=== PATIENT | female | born 1955 ===

== ENCOUNTER 2018-04-08 19:07 | Observation (INO) | payer MEDICAID ==
--- NOTE | 2018-04-08 19:41 | ED PDOC ---
Arrival/HPI - General Chief Complaint: GI Problem Time Seen by Provider: 04/08/18 19:21 Historian: Patient - History of Present Illness Narrative History of Present Illness (Text): 04/08/18 19:36 A 62 year old female, whose past medical history includes colon cancer on chemotherapy, last session 1 week ago, presents to the emergency department complaining of non-bloody diarrhea for the past few days. Patient notes associated nausea and 1 episode of non-bilious non-bloody vomiting. Patient also reports a headache and episodes of dizziness, which occasionally cause her to feel near syncopal and unsteady while ambulating. Patient denies any fever, chills, abdominal pain, chest pain, shortness of breath, cough or any other complaints. Time/Duration: Other (few days) Symptom Course: Unchanged Context: Home Past Medical History - Provider Review Nursing Documentation Reviewed: Yes - Infectious Disease Hx of Infectious Diseases: None - Cardiac Hx Cardiac Disorders: No - Pulmonary Hx Respiratory Disorders: No - Neurological Hx Neurological Disorder: No - HEENT Hx HEENT Disorder: No - Renal Hx Renal Disorder: No - Endocrine/Metabolic Hx Endocrine Disorders: No - Hematological/Oncological Hx Blood Disorders: Yes Hx Cancer: Yes (colon) Hx Chemotherapy: Yes - Integumentary Hx Dermatological Disorder: No - Musculoskeletal/Rheumatological Hx Musculoskeletal Disorders: No - Gastrointestinal Hx Gastrointestinal Disorders: Yes Hx Gall Bladder Disease: Yes - Genitourinary/Gynecological Hx Genitourinary Disorders: No - Psychiatric Hx Psychophysiologic Disorder: No Hx Substance Use: No - Surgical History Hx Appendectomy: Yes Hx Cholecystectomy: Yes - Anesthesia Hx Anesthesia: Yes Family/Social History - Physician Review Nursing Documentation Reviewed: Yes Family/Social History: No Known Family HX Smoking Status: Light Smoker < 10 Cigarettes Daily Hx Alcohol Use: No Hx Substance Use: No Allergies/Home Meds Allergies/Adverse Reactions: Allergies No Known Allergies Allergy (Verified 04/08/18 19:18) Home Medications: Home Meds Medication Instructions Recorded Confirmed Unobtainable 04/08/18 04/08/18 Review of Systems - Physician Review All systems were reviewed & negative as marked: Yes - Review of Systems Constitutional: absent: Fevers, Night Sweats Respiratory: absent: SOB, Cough Cardiovascular: Other (near-syncopal). absent: Chest Pain Gastrointestinal: Diarrhea, Nausea, Vomiting. absent: Abdominal Pain Neurological: Headache, Dizziness, Gait Changes (unsteady) Physical Exam Vital Signs Reviewed: Yes Vital Signs Temp Pulse Resp BP Pulse Ox 04/08/18 23:40 86 18 150/82 100 04/08/18 21:21 80 18 129/81 98 04/08/18 19:28 98.5 F 87 18 123/74 98 Temperature: Afebrile Blood Pressure: Normal Pulse: Regular Respiratory Rate: Normal Appearance: Positive for: Well-Appearing, Non-Toxic, Comfortable Pain Distress: None Mental Status: Positive for: Alert and Oriented X 3 - Systems Exam Head: Present: Atraumatic, Normocephalic Pupils: Present: PERRL Extroacular Muscles: Present: EOMI Conjunctiva: Present: Normal Ears: Present: Normal Mouth: Present: Moist Mucous Membranes Pharnyx: Present: Normal Neck: Present: Normal Range of Motion Respiratory/Chest: Present: Clear to Auscultation, Good Air Exchange. No: Respiratory Distress, Accessory Muscle Use Cardiovascular: Present: Regular Rate and Rhythm, Normal S1, S2. No: Murmurs Abdomen: Present: Normal Bowel Sounds. No: Tenderness, Distention, Peritoneal Signs Back: Present: Normal Inspection Upper Extremity: Present: Normal Inspection. No: Cyanosis, Edema Lower Extremity: Present: Normal Inspection. No: Edema Neurological: Present: GCS=15, CN II-XII Intact, Speech Normal, Motor Func Grossly Intact, Normal Sensory Function, Normal Cerebellar Funct, Gait Normal Skin: Present: Warm, Dry, Normal Color. No: Rashes Psychiatric: Present: Alert, Oriented x 3, Normal Insight, Normal Concentration Medical Decision Making ED Course and Treatment: 04/08/18 19:36 Impression: A 62 year old female with nausea, vomiting, and diarrhea. Patient notes a headache and dizziness. Plan: -- Head CT -- EKG -- Labs -- Urinalysis -- Reassess and disposition Progress Notes: EKG shows NSR at 87 BPM with normal intervals, normal axis. Interpreted by me. Report Date : 04/08/2018 21:06:00 EXAM: CT Head Without Intravenous Contrast Dictated By: Nicolas Arevalo MD IMPRESSION: 1. No definite acute intracranial abnormality. 2. Incidental/non-acute findings are described above. 04/08/18 23:10: Case discussed in detail with Dr. Ortega who will consult on the patient. Case also discussed with curator medical museum and Dr. Roldan who accepts patient to the hospitalist's service. - Lab Interpretations Lab Results: 04/08/18 19:40 04/08/18 19:40 Lab Results 04/08/18 20:39: Urine Color Light yellow, Urine Appearance Clear, Urine pH 7.5, Ur Specific [place] 1.015, Urine Protein Negative, Urine Glucose (UA) Negative, Urine Ketones Negative, Urine Blood Trace-intact H, Urine Nitrate Negative, Urine Bilirubin Negative, Urine Urobilinogen 0.2, Ur Leukocyte Esterase Negative , Urine RBC 0 - 2, Urine WBC 0 - 2, Ur Epithelial Cells 0 - 2, Urine Bacteria Trace 04/08/18 19:40: Free T4 1.07, TSH 3rd Generation 1.59 04/08/18 19:40: PT 12.6 H, INR 1.10 H, APTT 37.6 H 04/08/18 19:40: WBC 4.1 L, RBC 3.79, Hgb 12.4, Hct 37.3, MCV 98.4, MCH 32.7, MCHC 33.2, RDW 14.9 H, Plt Count 85 L, MPV 9.8 04/08/18 19:40: Sodium 148, Potassium 3.6, Chloride 109 H, Carbon Dioxide 28, Anion Gap 14, BUN 11, Creatinine 0.5 L, Est GFR ( Amer) > 60, Est GFR ( Non-Af Amer) > 60, Random Glucose 96, Calcium 9.2, Total Bilirubin 0.6, AST 41 H , ALT 31, Alkaline Phosphatase 98, Lactate Dehydrogenase 656, Total Creatine Kinase 69, Troponin I < 0.01, Total Protein 6.7, Albumin 3.8, Globulin 2.9, Albumin/Globulin Ratio 1.3, Lipase 264 I have reviewed the lab results: Yes - RAD Interpretation Radiology Orders: 04/08/18 19:30 HEAD W/O CONTRAST [CT] Stat - Medication Orders Current Medication Orders: Enoxaparin Sodium (Lovenox) 40 mg SC DAILY ANGELES PRN Reason: Protocol Sodium Chloride (Sodium Chloride 0.9%) 1,000 mls @ 100 mls/hr IV .Q10H ANGELES Last Admin: 04/08/18 21:53 Dose: 100 mls/hr eMAR Start Stop Document 04/08/18 21:53 AD (Rec: 04/08/18 21:53 AD [id number]) Intravenous Solution Start Date 04/08/18 Start Time 21:53 Ibuprofen (Motrin Tab) 600 mg PO Q6H PRN PRN Reason: Headache Ondansetron HCl (Zofran Inj) 4 mg IVP Q6 PRN PRN Reason: Nausea/Vomiting Pantoprazole Sodium (Protonix Ec Tab) 40 mg PO 0600 ANGELES Last Admin: 04/09/18 05:04 Dose: 40 mg Discontinued Medications Ondansetron HCl (Zofran Inj) 4 mg IVP ONCE ONE Stop: 04/08/18 21:42 Last Admin: 04/08/18 22:03 Dose: 4 mg IVP Administration Document 04/08/18 22:03 AD (Rec: 04/08/18 22:03 AD [id number]) Charges for Administration # of IVP Administrations 1 - Scribe Statement The provider has reviewed the documentation as recorded by the Harjeetibstephanie Parnell Provider Scribe Attestation: All medical record entries made by the Scribe were at my direction and personally dictated by me. I have reviewed the chart and agree that the record accurately reflects my personal performance of the history, physical exam, medical decision making, and the department course for this patient. I have also personally directed, reviewed, and agree with the discharge instructions and disposition. Disposition/Present on Arrival - Present on Arrival Any Indicators Present on Arrival: No History of DVT/PE: No History of Uncontrolled Diabetes: No Urinary Catheter: No History of Decub. Ulcer: No History Surgical Site Infection Following: None - Disposition Have Diagnosis and Disposition been Completed?: Yes Diagnosis: Near syncope, Gait instability Disposition: HOSPITALIZED Disposition Time: 23:09 Patient Plan: Observation Patient Problems: Current Active Problems Problem Status Onset Gait instability Acute Near syncope Acute Condition: STABLE
[2018-04-08 19:54] LABS: HEMOGLOBIN 12.4 g/dL (12.0-16.0); MEAN CELL VOLUME 98.4 fl (80.0-105.0); MEAN CORPUSCULAR HEMOGLOBIN 32.7 pg (25.0-35.0); MEAN CORPUSCULAR HGB CONC 33.2 g/dl (31.0-37.0); MEAN PLATELET VOLUME 9.8 fl (7.0-11.0); RBC 3.79 10^6/uL (3.5-6.1); RED CELL DISTRIBUTION WIDTH 14.9 % (11.5-14.5); WHITE BLOOD COUNT 4.1 10^3/ul (4.5-11.0)
[2018-04-08 19:59] LABS: INR 1.1 (0.93-1.08); PROTHROMBIN TIME 12.6 SECONDS (9.4-12.5)
[2018-04-08 20:00] LABS: ALB/GLOB RATIO 1.3 (1.1-1.8); ALBUMIN 3.8 g/dL (3.0-4.8); ALT/SGPT 31 U/L (7-56); AST/SGOT 41 U/L (14-36); BLOOD UREA NITROGEN 11 mg/dL (7-21); CALCIUM 9.2 mg/dL (8.4-10.5); GFR AFRICAN-AMERICAN > 60; GFR NON-AFRICAN AMERICAN > 60; LIPASE 264 U/L (23-300); PARTIAL THROMBOPLASTIN TIME 37.6 Seconds (25.1-36.5)
[2018-04-08 20:12] LABS: TROPONIN I < 0.01 ng/mL
[2018-04-08 20:58] LABS: PH,URINE 7.5 (4.7-8.0); URINE APPEARANCE CLEAR (CLEAR); URINE BILIRUBIN NEGATIVE (NEGATIVE); URINE BLOOD TRACE-INTACT (NEGATIVE); URINE COLOR LIGHT YELLOW (YELLOW); URINE GLUCOSE (UA) NEGATIVE (NEGATIVE); URINE LEUKOCYTE ESTERASE NEGATIVE Leu/uL (NEGATIVE); URINE PROTEIN NEGATIVE mg/dL (<30 mg/dL); URINE UROBILINOGEN 0.2 E.U./dL (<1 E.U./dL)
[2018-04-08 21:00] LABS: URINE BACTERIA TRACE (NEG); URINE EPITHELIAL CELLS 0 - 2 /hpf (0-5); URINE RBC 0 - 2 /hpf (0-2); URINE WBC 0 - 2 /hpf (0-6)
--- NOTE | 2018-04-08 21:07 | CT ---
EXAM: CT Head Without Intravenous Contrast CLINICAL HISTORY: 62 years old, female; Signs and symptoms; Dizziness; Additional info: Dizzy TECHNIQUE: Axial computed tomography images of the head/brain without intravenous contrast. All CT scans at this facility use one or more dose reduction techniques, viz.: automated exposure control; ma/kV adjustment per patient size (including targeted exams where dose is matched to indication; i.e. head); or iterative reconstruction technique. Coronal and sagittal reformatted images were created and reviewed. COMPARISON: No relevant prior studies available. FINDINGS: Brain: Mild atrophy. No intracranial hemorrhage. No mass. No definite edema. Ventricles: No hydrocephalus. Bones/joints: No acute fracture. Soft tissues: Unremarkable. Vasculature: Minimal atherosclerotic disease of intracranial arteries. Sinuses: Scattered minimal mucosal thickening. Mastoid air cells: No mastoid effusion. Orbits: Unremarkable as visualized. IMPRESSION: 1. No definite acute intracranial abnormality. 2. Incidental/non-acute findings are described above.
[2018-04-08] MEDS: Sodium Chloride 0.9% 1,000 ML IV SCH (21:53)
--- NOTE | 2018-04-09 00:08 | CP.PCM.HP ---
<Jewell Green - Last Filed: 04/09/18 06:15> History of Present Illness - History of Present Illness History of Present Illness: PGY-[address] Roldan CC: Near syncope, Gait instability Ms Diggs, 62 year old [facility] female, whose past medical history includes colon cancer (2017) s/p colectomy currently on chemotherapy, last session 1 week ago, presents to the emergency department complaining of spinning sensation and gait instability. After this round of chemo, 4 days ago, pt started to feel dizzy, with room spinning sensation. The dizziness was severe today and daughter noticed the patient swerving to one side when she walks. The spinning and dizziness was made worse when she rises from bed in AM. She had had nausea, vomiting, and diarrhea after the chemo. She had decreased appetite, decreased oral intake, and drink less water. She has non-bloody diarrhea for the past few days. She had nausea and 1 episode of non-bilious non-bloody vomiting today. ROS: (+) Headache from occipital to frontal b/l. (+) stress from illness and family (+) numbness of finger tips and toes started 2 months ago Denies sick contact, recent travel, recent antibiotics Denies fever, chills, abdominal pain, chest pain, shortness of breath, cough, abdominal pain, dysuria, frquency/decrease in urination PMHx Colon cancer (dx May 2017) - s/p hemicolectomy in [place] - ongoing chemo every MTW since 7 month ago and still on-going Anemia - Fe infusion almost monthly Chronic back pain on flexeril and gabapentin PSH Hemicolectomy appendectomy cholecysectomy FH Adopted. FH unavailable SH Live with daughter. Independent ambulation Former smoker, quit 2 months ago, /ppd x 50 years Denies drink and drug All NKDA Med Loperamid 2mg q6 prn Gabapentin Flexeril PMD = Lavinia Pina V Oncologist = Dr Ortega Present on Admission - Present on Admission Any Indicators Present on Admission: No Past Patient History - Infectious Disease Hx of Infectious Diseases: None - Past Social History Smoking Status: Light Smoker < 10 Cigarettes Daily - CARDIAC Hx Cardiac Disorders: No - PULMONARY Hx Respiratory Disorders: No - NEUROLOGICAL Hx Neurological Disorder: No - HEENT Hx HEENT Problems: No - RENAL Hx Chronic Kidney Disease: No - ENDOCRINE/METABOLIC Hx Endocrine Disorders: No - HEMATOLOGICAL/ONCOLOGICAL Hx Blood Disorders: Yes Hx Cancer: Yes (colon) Hx Chemotherapy: Yes - INTEGUMENTARY Hx Dermatological Problems: No - MUSCULOSKELETAL/RHEUMATOLOGICAL Hx Musculoskeletal Disorders: No - GASTROINTESTINAL Hx Gastrointestinal Disorders: Yes Hx Gall Bladder Disease: Yes - GENITOURINARY/GYNECOLOGICAL Hx Genitourinary Disorders: No - PSYCHIATRIC Hx Psychophysiologic Disorder: No Hx Substance Use: No - SURGICAL HISTORY Hx Appendectomy: Yes Hx Cholecystectomy: Yes - ANESTHESIA Hx Anesthesia: Yes Meds Allergies/Adverse Reactions: Allergies Allergy/AdvReac Type Severity Reaction Status Date / Time No Known Allergies Allergy Verified 05/10/18 12:09 Physical Exam - Constitutional Appears: No Acute Distress - Head Exam Head Exam: ATRAUMATIC, NORMAL INSPECTION, NORMOCEPHALIC - Eye Exam Eye Exam: EOMI, Normal appearance, PERRL Additional comments: tenderness when palpate occiptial to frontal b/l - ENT Exam ENT Exam: Mucous Membranes Moist - Neck Exam Neck exam: Negative for: Lymphadenopathy Additional comments: supple - Respiratory Exam Respiratory Exam: Clear to Auscultation Bilateral, NORMAL BREATHING PATTERN. absent: Rales, Rhonchi, Wheezes - Cardiovascular Exam Cardiovascular Exam: REGULAR RHYTHM, +S1, +S2. absent: Systolic Murmur - GI/Abdominal Exam GI & Abdominal Exam: Normal Bowel Sounds, Soft. absent: Distended, Guarding Additional comments: mid-line scar healed well - Extremities Exam Extremities exam: Positive for: normal inspection, pedal pulses present. Negative for: calf tenderness, pedal edema - Neurological Exam Neurological exam: Alert, CN II-XII Intact, Oriented x3 Additional comments: AAOx3 speech normal Motor 5/5 all extremities sensory intact rapid alternative movement intact Ziyad-Hallpike test is positive for horizontal nystagmas when rotate L Results - Vital Signs Recent Vital Signs: Last Vital Signs Temp 98.5 F 04/08/18 19:28 Pulse 86 04/08/18 23:40 Resp 18 04/08/18 23:40 BP 150/82 04/08/18 23:40 Pulse Ox 100 04/08/18 23:40 - Labs Result Diagrams: 04/08/18 19:40 04/08/18 19:40 Assessment & Plan - Assessment and Plan (Free Text) Plan: Ms Diggs, 62 year old [place] female, whose past medical history includes colon cancer (2017) s/p hemicolectomy currently on chemotherapy, last session 1 week ago, complain of severe dizziness with spinning with gait instability. Pt had nausea, vomiting, diarrhea after this round of chemo associated with decreased oral intake. She has non-bloody diarrhea for the past few days. She had nausea and 1 episode of non-bilious non-bloody vomiting today. PE is significant for horizontal nystagmus on ziyad-hallpike testing. CT head was negative for acute intracranial abnormality. EKG shows NSR at 87 BPM with normal intervals, normal axis. Near syncope with vertigionous component, R/O metabilic cause - Syncope workup: Telemetry, orthostatic VS, carotid doppler, echo - CT head was negative for acute intracranial abnormality. EKG shows NSR at 87 BPM with normal intervals, normal axis. - High Fall risk - Defer to neuro re: decision of meclizine - A1C, TSH Nausea, vomiting, diarrhea likely side effect of chemo doubt infectious origin - zofran PRN Gait instability Likely from dizziness - physical therapy Tension Headache - motrin PRN Hx Colon cancer Anemia likely side effect of chemo - Call Dr Ortega to get chemo drug info Chronic back pain on flexeril and gabapentin - Call Liz in AM to confirm doses Numbness and tingling of tips of fingers and toes - Likely side effect of chemotherapy Prophylaxis - protonix and lovenox s/r/d/w Dr. Roldan <Yuli TAM,[facility] - Last Filed: 05/14/18 11:03> Results - Vital Signs Recent Vital Signs: Last Vital Signs Temp 97.5 F L 04/10/18 08:28 Pulse 77 04/10/18 08:28 Resp 18 04/10/18 08:28 BP 118/66 04/10/18 08:28 Pulse Ox 98 04/10/18 08:28 - Labs Result Diagrams: 04/10/18 06:30 04/10/18 06:30 Attending/Attestation - Attestation I have personally seen and examined this patient.: Yes I have fully participated in the care of the patient.: Yes I have reviewed all pertinent clinical information: Yes Notes (Text): -I agree with the above H&P (including assessment and plan) completed by the resident physician.
[2018-04-09 02:09] LABS: FREE T4 1.07 ng/dL (0.78-2.19)
[2018-04-09 03:13] VITALS: BMI 18.8
[2018-04-09] MEDS: Pantoprazole 40 mg EC Tab PO SCH (05:04)
[2018-04-09 06:42] LABS: BASO # 0.02 K/mm3 (0.0-2.0); BASO % 0.5 % (0.0-3.0); EOS # 0.1 (0.0-0.7); GRAN # 2.03 (1.4-6.5); GRAN % 51.7 % (50.0-68.0); LYMPH # 1.3 (1.2-3.4); LYMPH % 32.1 % (22.0-35.0); MEAN CELL VOLUME 98.5 fl (80.0-105.0); MEAN CORPUSCULAR HEMOGLOBIN 32.1 pg (25.0-35.0); MEAN CORPUSCULAR HGB CONC 32.5 g/dl (31.0-37.0); MEAN PLATELET VOLUME 9.4 fl (7.0-11.0); MONO # 0.5 (0.1-0.6); MONO % 13.7 % (1.0-6.0); RBC 3.43 10^6/uL (3.5-6.1); RED CELL DISTRIBUTION WIDTH 15.2 % (11.5-14.5); WHITE BLOOD COUNT 3.9 10^3/ul (4.5-11.0)
[2018-04-09 07:24] LABS: ALB/GLOB RATIO 1.3 (1.1-1.8); ALBUMIN 3.2 g/dL (3.0-4.8); ALT/SGPT 33 U/L (7-56); AST/SGOT 39 U/L (14-36); BLOOD UREA NITROGEN 7 mg/dL (7-21); CALCIUM 8.6 mg/dL (8.4-10.5); GFR AFRICAN-AMERICAN > 60; GFR NON-AFRICAN AMERICAN > 60
[2018-04-09] MEDS ORDERED: Potassium Chloride 20 mEq ER Tab PO ONE (07:28)
--- NOTE | 2018-04-09 08:27 | CP.PCM.CON ---
<Deidra Rodriguez - Last Filed: 04/09/18 16:24> History of Present Illness - History of Present Illness History of Present Illness: 62yo female PMHx colon ca on chemo, anemia, and chronic back pain presents with 4 day history of dizziness and gait instability. Patient reports she feels especially dizzy everytime she stands up and feels like she is going to lose balance. Patient feels like the room is spinning during these episodes. She denies any LOC, fall, or weakness. She does admit to chills and having episodes of diarrhea for 2 days prior to the dizziness and a slight headache. She denied any fever, chills, chest pain, palpitations, SOB, cough, abd pain, dysuria, pain /swelling in her legs b/l. Patient does have some numbness and tingling at her fingertips b/l which she associates with her chemotherapy. 12 point ROS obtained and negative, except as per HPI. PMHx: Colon cancer (dx May 2017) s/p hemicolectomy in [place] and currently ongoing chemo every MTW for the past 7 months, Anemia [receives iron infusions monthly], Chronic back pain on flexeril and gabapentin PSurgHx: Hemicolectomy, appendectomy, cholecysectomy Meds: pls see chart ALL: NKDA FamHx: adopted- fam hx unavailable SocHx: Live with daughter, former smoker quit 2 months ago and used to smoke 5- 10 cigarettes/day for 50 years, denies drinking EtOH/drug use, ambulates independently PMD: Kam Oncologist: Jordan Review of Systems - Review of Systems All systems: reviewed and no additional remarkable complaints except Review of Systems: as per HPI Past Patient History - Infectious Disease Hx of Infectious Diseases: None - Past Social History Smoking Status: Light Smoker < 10 Cigarettes Daily - CARDIAC Hx Cardiac Disorders: No - PULMONARY Hx Respiratory Disorders: No - NEUROLOGICAL Hx Neurological Disorder: No - HEENT Hx HEENT Problems: No - RENAL Hx Chronic Kidney Disease: No - ENDOCRINE/METABOLIC Hx Endocrine Disorders: No - HEMATOLOGICAL/ONCOLOGICAL Hx Blood Disorders: Yes Hx Cancer: Yes (colon) Hx Chemotherapy: Yes - INTEGUMENTARY Hx Dermatological Problems: No - MUSCULOSKELETAL/RHEUMATOLOGICAL Hx Musculoskeletal Disorders: No - GASTROINTESTINAL Hx Gastrointestinal Disorders: Yes Hx Gall Bladder Disease: Yes - GENITOURINARY/GYNECOLOGICAL Hx Genitourinary Disorders: No - PSYCHIATRIC Hx Psychophysiologic Disorder: No Hx Substance Use: No - SURGICAL HISTORY Hx Appendectomy: Yes Hx Cholecystectomy: Yes - ANESTHESIA Hx Anesthesia: Yes Meds Allergies/Adverse Reactions: Allergies Allergy/AdvReac Type Severity Reaction Status Date / Time No Known Allergies Allergy Verified 04/08/18 19:18 - Medications Medications: Current Medications Enoxaparin Sodium (Lovenox) 40 mg SC DAILY ANGELES PRN Reason: Protocol Sodium Chloride (Sodium Chloride 0.9%) 1,000 mls @ 100 mls/hr IV .Q10H [facility] Last Admin: 04/08/18 21:53 Dose: 100 mls/hr Ibuprofen (Motrin Tab) 600 mg PO Q6H PRN PRN Reason: Headache Ondansetron HCl (Zofran Inj) 4 mg IVP Q6 PRN PRN Reason: Nausea/Vomiting Pantoprazole Sodium (Protonix Ec Tab) 40 mg PO 0600 [facility] Last Admin: 04/09/18 05:04 Dose: 40 mg Physical Exam - Constitutional Appears: Non-toxic, No Acute Distress - Head Exam Head Exam: ATRAUMATIC, NORMAL INSPECTION, NORMOCEPHALIC - Eye Exam Eye Exam: EOMI, Normal appearance, Nystagmus (fast phase to the left), PERRL. absent: Conjunctival injection, Scleral icterus Pupil Exam: PERRL - ENT Exam ENT Exam: Mucous Membranes Moist - Neck Exam Neck exam: Positive for: Full Rom. Negative for: Lymphadenopathy - Respiratory Exam Respiratory Exam: NORMAL BREATHING PATTERN. absent: Accessory Muscle Use, Respiratory Distress - Cardiovascular Exam Cardiovascular Exam: +S1, +S2 - GI/Abdominal Exam GI & Abdominal Exam: Soft. absent: Tenderness - Neurological Exam Neurological exam: Alert, CN II-XII Intact, Oriented x3 - Psychiatric Exam Psychiatric exam: Normal Affect, Normal Mood - Skin Skin Exam: Dry, Intact, Normal Color, Warm Results - Vital Signs Recent Vital Signs: Last Vital Signs Temp 97.8 F 04/09/18 02:57 Pulse 62 04/09/18 05:59 Resp 18 04/09/18 02:57 BP 150/74 04/09/18 02:57 Pulse Ox 100 04/09/18 00:45 - Labs Result Diagrams: 04/09/18 06:30 04/09/18 06:30 Labs: Laboratory Results - last 24 hr 04/09/18 04/09/18 06:30 06:30 WBC 3.9 L RBC 3.43 L Hgb 11.0 L Hct 33.8 L MCV 98.5 MCH 32.1 MCHC 32.5 RDW 15.2 H Plt Count 65 L MPV 9.4 Gran % 51.7 Lymph % (Auto) 32.1 Marshall % (Auto) 13.7 H Eos % (Auto) 2.0 Baso % (Auto) 0.5 Gran # 2.03 Lymph # (Auto) 1.3 Marshall # (Auto) 0.5 Eos # (Auto) 0.1 Baso # (Auto) 0.02 Sodium 146 Potassium 3.2 L Chloride 110 H Carbon Dioxide 27 Anion Gap 12 BUN 7 Creatinine 0.4 L Est GFR ( Amer) > 60 Est GFR (Non-Af Amer) > 60 Random Glucose 83 Calcium 8.6 Total Bilirubin 0.7 AST 39 H ALT 33 Alkaline Phosphatase 87 Total Protein 5.8 Albumin 3.2 Globulin 2.6 Albumin/Globulin Ratio 1.3 Assessment & Plan - Assessment and Plan (Free Text) Assessment: 62yo female PMHx colon ca on chemo, anemia, and chronic back pain presents with 4 day history of dizziness and gait instability. Plan: -CT head: no definite acute intracranial abnl; incidental/non acute findings -CTA head/neck: unremarkable -f/u carotid u/s -f/u MRI -f/u orthostatic vitals -Valium 2mg q12 [address] Laura Rodriguez PGY2 <Jacob Sanchez - Last Filed: 04/09/18 18:47> Meds - Medications Medications: Current Medications Diazepam (Valium) 2 mg PO Q12 PRN; Protocol PRN Reason: Other Enoxaparin Sodium (Lovenox) 40 mg SC DAILY [facility] PRN Reason: Protocol Last Admin: 04/09/18 09:55 Dose: 40 mg Potassium Chloride 40 meq/ (Dextrose/Sodium Chloride) 1,020 mls @ 100 mls/hr IV .[id number] [facility] Last Admin: 04/09/18 17:44 Dose: 100 mls/hr Ibuprofen (Motrin Tab) 600 mg PO Q6H PRN PRN Reason: Headache Meclizine HCl (Antivert) 12.5 mg PO TID [facility] Last Admin: 04/09/18 17:32 Dose: 12.5 mg Ondansetron HCl (Zofran Inj) 4 mg IVP Q6 PRN PRN Reason: Nausea/Vomiting Pantoprazole Sodium (Protonix Ec Tab) 40 mg PO 0600 ANGELES Last Admin: 04/09/18 05:04 Dose: 40 mg Results - Vital Signs Recent Vital Signs: Last Vital Signs Temp 98.6 F 04/09/18 18:21 Pulse 76 04/09/18 18:21 Resp 20 04/09/18 18:21 BP 119/68 04/09/18 18:21 Pulse Ox 98 04/09/18 18:21 - Labs Result Diagrams: 04/09/18 06:30 04/09/18 06:30 Labs: Laboratory Results - last 24 hr 04/09/18 04/09/18 06:30 06:30 WBC 3.9 L RBC 3.43 L Hgb 11.0 L Hct 33.8 L MCV 98.5 MCH 32.1 MCHC 32.5 RDW 15.2 H Plt Count 65 L MPV 9.4 Gran % 51.7 Lymph % (Auto) 32.1 Marshall % (Auto) 13.7 H Eos % (Auto) 2.0 Baso % (Auto) 0.5 Gran # 2.03 Lymph # (Auto) 1.3 Marshall # (Auto) 0.5 Eos # (Auto) 0.1 Baso # (Auto) 0.02 Sodium 146 Potassium 3.2 L Chloride 110 H Carbon Dioxide 27 Anion Gap 12 BUN 7 Creatinine 0.4 L Est GFR ( Amer) > 60 Est GFR (Non-Af Amer) > 60 Random Glucose 83 Calcium 8.6 Total Bilirubin 0.7 AST 39 H ALT 33 Alkaline Phosphatase 87 Total Protein 5.8 Albumin 3.2 Globulin 2.6 Albumin/Globulin Ratio 1.3 Attending/Attestation - Attestation I have personally seen and examined this patient.: Yes I have fully participated in the care of the patient.: Yes I have reviewed all pertinent clinical information: Yes
[2018-04-09 08:32] VITALS: O2SAT 98
[2018-04-09] MEDS: Enoxaparin 40 mg Syringe SC SCH (09:55)
[2018-04-09] MEDS: Potassium Chloride 40 MEQ in Dextrose 5%/0.45% NS 1,000 ML IV SCH ×2 (10:04→17:44)
--- NOTE | 2018-04-09 10:12 | CARD ---
APPROVED REPORT EKG Measurement Heart [id number] <Conclusion> Normal sinus rhythm Small Q in 3,F LVH by voltage
--- NOTE | 2018-04-09 11:17 | CT ---
PROCEDURE: CT Angiography of the neck with contrast HISTORY: syncope COMPARISON: None available. TECHNIQUE: Contiguous axial images of the neck were obtained from the level of the skull-base to the superior mediastinum in the arteriographic phase of enhancement. Coronal and sagittal reformats or also generated. IV contrast dose: Radiation Dose - DLP: mGy-cm This CT exam was performed using one or more of the following dose reduction techniques: Automated exposure control, adjustment of the mA and/or kV according to patient size, and/or use of iterative reconstruction technique. FINDINGS: RIGHT CAROTID ARTERIES: Common Carotid Artery: Normal. Carotid Bifurcation: Normal. Internal Carotid Artery:Normal. External Carotid Artery (proximal branches): Normal. LEFT CAROTID ARTERIES: Common Carotid Artery: Normal. Carotid Bifurcation: Calcified plaque. No significant stenosis Internal Carotid Artery:Normal. External Carotid Artery (proximal branches): Normal. VERTEBRAL ARTERIES: Right Vertebral Artery: Normal. Left Vertebral Artery: Normal. OTHER FINDINGS: None. IMPRESSION: No significant stenosis CT Angiography of the Brain. HISTORY: syncope COMPARISON: None available. TECHNIQUE: CT angiography of the intracranial arteries was performed. Coronal and sagittal maximum intensity projection reformated images were generated. This CT exam was performed using one or more of the following dose reduction techniques: Automated exposure control, adjustment of the mA and/or kV according to patient size, and/or use of iterative reconstruction technique. FINDINGS: INTERNAL CEREBRAL ARTERIES: Unremarkable. The skull base, petrous, cavernous and supraclinoid segments are bilaterally widely patent. ANTERIOR CEREBRAL ARTERIES: Unremarkable. A1 and A2 segments are widely patent. Smaller distal branches unremarkable, as visualized. MIDDLE CEREBRAL ARTERIES: Unremarkable. M1 and M2 segments are widely patent. Perisylvian branches grossly symmetric. POSTERIOR CIRCULATION: Basilar Artery: Unremarkable. Distal Vertebral Arteries: Unremarkable. Posterior Cerebral Arteries: Unremarkable. Posterior Inferior Cerebellar Arteries: Unremarkable. ANEURYSM/ VASCULAR MALFORMATIONS: None. OTHER FINDINGS: None. IMPRESSION: Unremarkable CT Angiography of the Brain.
[2018-04-09] MEDS: Sodium Chloride 0.9% 1,000 ML IV SCH (16:04)
--- NOTE | 2018-04-09 22:47 | US ---
PROCEDURE: Bilateral carotid artery duplex ultrasound HISTORY: Carotid stenosis PHYSICIAN(S): Yasir Lubin MD. TECHNIQUE: Duplex sonography and color-flow Doppler were used to evaluate the carotid bifurcations and limited segments of the vertebral arteries bilaterally. FINDINGS: There is mild smooth heterogeneous plaque noted at the carotid bifurcations bilaterally. The peak systolic velocity in the proximal right internal carotid artery is 97 cm/sec. This corresponds to a 20 to 39% proximal right ICA stenosis. Normal systolic velocities are noted in the proximal right external carotid artery. There is antegrade flow in the right vertebral artery. The peak systolic velocity in the proximal left internal carotid artery is 98 cm/sec. This corresponds to a 20 to 39% proximal left ICA stenosis. Normal systolic velocities are noted in the proximal left external carotid artery. There is antegrade flow in the left vertebral artery. IMPRESSION: 1. Bilateral 20-39% proximal ICA stenoses. 2. Antegrade flow in both vertebral arteries.
--- NOTE | 2018-04-09 23:42 | CON ---
DATE: 04/09/2018 LOCATION: The patient in room 377, bed 2. REASON FOR CONSULTATION: Dizzy, near syncope. HISTORY OF PRESENT ILLNESS: A 62-year-old female who recently completed chemotherapy for her colon cancer and she had surgery for colon cancer, admitted with a history that 4 days ago, she started getting dizziness and felt like the room is spinning around, and the patient denies any palpitation, chest pain, shortness of breath, nausea or vomiting associated with this episode. Sometimes, the patient gets headache. The patient felt like passing out with this dizziness. The patient denies any prior history of chest pain, shortness of breath, palpitation on exertion. PAST MEDICAL HISTORY: Positive for surgery for colon cancer, recently completed chemotherapy about 5 days ago. The patient also has history of cholecystectomy and appendectomy. PERSONAL HISTORY: The patient is ex-smoker, 6 to 7 cigarettes a day, but stopped 2 months ago. Denies drinking. ALLERGIES: THE PATIENT DENIES ANY ALLERGIES. MEDICATIONS AT HOME: Not known. REVIEW OF SYSTEMS: All the systems reviewed, positive mentioned in the history, others are negative. FAMILY HISTORY: Not significant. PHYSICAL EXAMINATION VITAL SIGNS: Blood pressure 139/74. We did orthostatic blood pressures, lying down 130/68, sitting 128/74, standing 130/76. So, there is no evidence of postural hypotension. Respiration 20, pulse 78, temperature 98.6. HEENT: Head is normocephalic. Eyes, pupils normal. Conjunctivae normal. Nose and throat normal. NECK: JVP low. Carotids equal. THORAX: AP diameter normal. LUNGS: Clear. CARDIOVASCULAR: S1 and S2. ABDOMEN: Soft. No tenderness. No organomegaly. Bowel sounds normal. EXTREMITIES: No clubbing. No cyanosis. LABORATORY DATA: WBC 3.9, hemoglobin 11, hematocrit 33.8, platelets 65, yesterday platelet was 85. Sodium 146, potassium 3.2, yesterday potassium was 3.6. BUN 7, creatinine 0.4. AST 39, ALT 33. Total protein and albumin normal. TSH normal. EKG showed normal sinus rhythm, small Q in III and aVF, LVH by voltage criteria. Head CT, no definite acute intracranial abnormality. Head and neck CTA, unremarkable CT angiography of the brain. DIAGNOSES: Dizziness, near syncope, low potassium. PLAN: Echo has been ordered. The patient already received 40 mEq of potassium today, Lovenox 40 mg subcutaneously daily. To be followed by neurologist. In the meantime, can try meclizine 12.5 p.o. t.i.d. Echo has been already requested and the patient can have stress test as outpatient, we will schedule through Cardiology Department. We will follow with you. Vidya Ness MD
[2018-04-10] MEDS: Pantoprazole 40 mg EC Tab PO SCH (05:28)
[2018-04-10] MEDS: Potassium Chloride 40 MEQ in Dextrose 5%/0.45% NS 1,000 ML IV SCH (05:28)
[2018-04-10 06:56] LABS: BASO # 0.02 K/mm3 (0.0-2.0); BASO % 0.5 % (0.0-3.0); EOS # 0.1 (0.0-0.7); EOS % 2.5 % (1.5-5.0); GRAN # 1.6 (1.4-6.5); GRAN % 43.6 % (50.0-68.0); LYMPH # 1.5 (1.2-3.4); LYMPH % 39.5 % (22.0-35.0); MEAN CELL VOLUME 99.4 fl (80.0-105.0); MEAN CORPUSCULAR HEMOGLOBIN 31.6 pg (25.0-35.0); MEAN CORPUSCULAR HGB CONC 31.8 g/dl (31.0-37.0); MEAN PLATELET VOLUME 10.2 fl (7.0-11.0); MONO # 0.5 (0.1-0.6); MONO % 13.9 % (1.0-6.0); RBC 3.48 10^6/uL (3.5-6.1); RED CELL DISTRIBUTION WIDTH 15.2 % (11.5-14.5); WHITE BLOOD COUNT 3.7 10^3/ul (4.5-11.0)
[2018-04-10 07:14] LABS: ALB/GLOB RATIO 1.2 (1.1-1.8); ALBUMIN 3.2 g/dL (3.0-4.8); ALT/SGPT 27 U/L (7-56); AST/SGOT 35 U/L (14-36); BLOOD UREA NITROGEN 4 mg/dL (7-21); GFR AFRICAN-AMERICAN > 60; GFR NON-AFRICAN AMERICAN > 60
[2018-04-10 08:28] VITALS: BP 118/66; PULSE 77; RESP 18; TEMP 97.5
--- NOTE | 2018-04-10 08:51 | CARD ---
APPROVED REPORT EXAM: Two-dimensional and M-mode echocardiogram with Doppler and color Doppler. Other Information Quality : GoodRhythm : INDICATION NEAR SYNCOPE 2D DIMENSIONS Left Atrium (2D)3.6 (1.6-4.0cm)IVSd1.0 (0.7-1.1cm) LVDd4.1 (3.9-5.9cm)PWd1.0 (0.7-1.1cm) LVDs2.9 (2.5-4.0cm)FS (%) 28.7 % LVEF (%)55.0 (>50%) M-Mode DIMENSIONS Aortic Root2.20 (2.2-3.7cm)Aortic Cusp Exc.1.60 (1.5-2.0cm) Aortic Valve AoV Peak Xahfrutt861.0cm/s Mitral Valve MV E Tjzhstnz03.2cm/sMV A Gtyvcndr56.9cm/sE/A ratio1.0 TDI E/Lateral E'0.0E/Medial E'0.0 Tricuspid Valve TR Peak Ytaqdckv818tg/sRAP BDILGBED20xqDeGC Peak Gr.14mmHg DLPO91ikKg LEFT VENTRICLE The left ventricle is normal size. There is normal left ventricular wall thickness. The left ventricular function is normal. The left ventricular ejection fraction is within the normal range. There is normal LV segmental wall motion. RIGHT VENTRICLE The right ventricle is normal size. ATRIA The left atrium size is normal. The right atrium size is normal. The interatrial septum is intact with no evidence for an atrial septal defect. AORTIC VALVE The aortic valve is normal in structure. MITRAL VALVE The mitral valve is normal in structure. TRICUSPID VALVE The tricuspid valve is normal in structure. GREAT VESSELS The aortic root is normal in size. PERICARDIAL EFFUSION There is no pericardial effusion. <Conclusion> The left ventricle is normal size. There is normal left ventricular wall thickness. The left ventricular function is normal.
[2018-04-10] MEDS: Enoxaparin 40 mg Syringe SC SCH (10:05)
--- NOTE | 2018-04-10 10:47 | CP.PCM.DIS ---
<Mack Lizarraga - Last Filed: 04/10/18 12:25> Provider - Provider Date of Admission: 04/09/18 22:03 Attending physician: Panda Wilkerson MD Primary care physician: Lavinia Humphrey DO Time Spent in preparation of Discharge (in minutes): 45 Diagnosis - Discharge Diagnosis (1) Vertigo Status: Acute Priority: Medium Hospital Course - Lab Results Lab Results: Most Recent Lab Values WBC 3.7 10^3/ul (4.5-11.0) L 04/10/18 06:30 RBC 3.48 10^6/uL (3.5-6.1) L 04/10/18 06:30 Hgb 11.0 g/dL (12.0-16.0) L 04/10/18 06:30 Hct 34.6 % (36.0-48.0) L 04/10/18 06:30 MCV 99.4 fl (80.0-105.0) 04/10/18 06:30 MCH 31.6 pg (25.0-35.0) 04/10/18 06:30 MCHC 31.8 g/dl (31.0-37.0) 04/10/18 06:30 RDW 15.2 % (11.5-14.5) H 04/10/18 06:30 Plt Count 68 10^3/uL (120.0-450.0) L 04/10/18 06:30 MPV 10.2 fl (7.0-11.0) 04/10/18 06:30 Gran % 43.6 % (50.0-68.0) L 04/10/18 06:30 Lymph % (Auto) 39.5 % (22.0-35.0) H 04/10/18 06:30 Imperial % (Auto) 13.9 % (1.0-6.0) H 04/10/18 06:30 Eos % (Auto) 2.5 % (1.5-5.0) 04/10/18 06:30 Baso % (Auto) 0.5 % (0.0-3.0) 04/10/18 06:30 Gran # 1.60 (1.4-6.5) 04/10/18 06:30 Lymph # (Auto) 1.5 (1.2-3.4) 04/10/18 06:30 Imperial # (Auto) 0.5 (0.1-0.6) 04/10/18 06:30 Eos # (Auto) 0.1 (0.0-0.7) 04/10/18 06:30 Baso # (Auto) 0.02 K/mm3 (0.0-2.0) 04/10/18 06:30 PT 12.6 SECONDS (9.4-12.5) H 04/08/18 19:40 INR 1.10 (0.93-1.08) H 04/08/18 19:40 APTT 37.6 Seconds (25.1-36.5) H 04/08/18 19:40 Sodium 145 mmol/L (132-148) 04/10/18 06:30 Potassium 4.3 mmol/L (3.6-5.0) 04/10/18 06:30 Chloride 109 mmol/L (98-107) H 04/10/18 06:30 Carbon Dioxide 29 mmol/L (21-33) 04/10/18 06:30 Anion Gap 11 (10-20) 04/10/18 06:30 BUN 4 mg/dL (7-21) L 04/10/18 06:30 Creatinine 0.5 mg/dl (0.7-1.2) L 04/10/18 06:30 Est GFR ( Amer) > 60 04/10/18 06:30 Est GFR (Non-Af Amer) > 60 04/10/18 06:30 Random Glucose 93 mg/dL (70-110) 04/10/18 06:30 Hemoglobin A1c 5.4 % (4.2-6.5) 04/08/18 19:40 Calcium 9.0 mg/dL (8.4-10.5) 04/10/18 06:30 Total Bilirubin 0.7 mg/dL (0.2-1.3) 04/10/18 06:30 AST 35 U/L (14-36) 04/10/18 06:30 ALT 27 U/L (7-56) 04/10/18 06:30 Alkaline Phosphatase 84 U/L (38-126) 04/10/18 06:30 Lactate Dehydrogenase 656 U/L (333-699) 04/08/18 19:40 Total Creatine Kinase 69 U/L (35-230) 04/08/18 19:40 Troponin I < 0.01 ng/mL 04/08/18 19:40 Total Protein 5.9 g/dL (5.8-8.3) 04/10/18 06:30 Albumin 3.2 g/dL (3.0-4.8) 04/10/18 06:30 Globulin 2.7 gm/dL 04/10/18 06:30 Albumin/Globulin Ratio 1.2 (1.1-1.8) 04/10/18 06:30 Lipase 264 U/L (23-300) 04/08/18 19:40 Free T4 1.07 ng/dL (0.78-2.19) 04/08/18 19:40 TSH 3rd Generation 1.59 mIU/mL (0.46-4.68) 04/08/18 19:40 Urine Color Light yellow (YELLOW) 04/08/18 20:39 Urine Appearance Clear (CLEAR) 04/08/18 20:39 Urine pH 7.5 (4.7-8.0) 04/08/18 20:39 Ur Specific Avery 1.015 (1.005-1.035) 04/08/18 20:39 Urine Protein Negative mg/dL (<30 mg/dL) 04/08/18 20:39 Urine Glucose (UA) Negative mg/dL (NEGATIVE) 04/08/18 20:39 Urine Ketones Negative mg/dL (NEGATIVE) 04/08/18 20:39 Urine Blood Trace-intact (NEGATIVE) H 04/08/18 20:39 Urine Nitrate Negative (NEGATIVE) 04/08/18 20:39 Urine Bilirubin Negative (NEGATIVE) 04/08/18 20:39 Urine Urobilinogen 0.2 E.U./dL (<1 E.U./dL) 04/08/18 20:39 Ur Leukocyte Esterase Negative Kristel/uL (NEGATIVE) 04/08/18 20:39 Urine RBC 0 - 2 /hpf (0-2) 04/08/18 20:39 Urine WBC 0 - 2 /hpf (0-6) 04/08/18 20:39 Ur Epithelial Cells 0 - 2 /hpf (0-5) 04/08/18 20:39 Urine Bacteria Trace (NEG) 04/08/18 20:39 - Hospital Course Hospital Course: HPI on presentation: Colon, 62 year old anais ackerman female, whose past medical history includes colon cancer (2017) s/p colectomy currently on chemotherapy, last session 1 week ago, presents to the emergency department complaining of spinning sensation and gait instability. After this round of chemo, 4 days ago, pt started to feel dizzy, with room spinning sensation. The dizziness was severe today and daughter noticed the patient swerving to one side when she walks. The spinning and dizziness was made worse when she rises from bed in AM. She had had nausea, vomiting, and diarrhea after the chemo. She had decreased appetite, decreased oral intake, and drink less water. She has non -bloody diarrhea for the past few days. She had nausea and 1 episode of non- bilious non-bloody vomiting today. Hospital course: Patient had Head CT, echo, carotid us, CTA of the head and neck all of which were negative. Patient also had MRI done, the result of which is pending at this time. Patient was able to ambulate with PT but still felt a little dizzy. She was started on Valium by Neuro (Dr. Sanchez), she was instructed to follow up with him as an outpatient. Discharge Exam - Head Exam Head Exam: ATRAUMATIC, NORMAL INSPECTION, NORMOCEPHALIC - Eye Exam Eye Exam: EOMI, Normal appearance, PERRL Pupil Exam: NORMAL ACCOMODATION, PERRL - Respiratory Exam Respiratory Exam: Clear to PA & Lateral, NORMAL BREATHING PATTERN, UNREMARKABLE - Cardiovascular Exam Cardiovascular Exam: REGULAR RHYTHM - GI/Abdominal Exam GI & Abdominal Exam: Normal Bowel Sounds, Soft, Unremarkable. absent: Distended - Neurological Exam Neurological exam: Alert, CN II-XII Intact, Normal Gait, Oriented x3, Reflexes Normal - Psychiatric Exam Psychiatric exam: Normal Affect, Normal Mood - Skin Skin Exam: Dry, Intact, Normal Color, Warm Discharge Plan - Discharge Medications Prescriptions: diaZEpam [Valium] 2 mg PO Q12 PRN #60 tab PRN Reason: Other - Follow Up Plan Condition: STABLE Disposition: HOME/ ROUTINE Instructions: Vertigo (a Type of Dizziness) (DC), Near Fainting Additional Instructions: Please follow up with your primary care doctor in 7-10 days. Please follow up with Dr. Sanchez in his office to follow up the results of your MRI. Please take Valium as prescribed for vertigo symptoms. Please call his office to make an appointment. I have attached his office information. Please come back to the ED if symptoms worsen. Referrals: Jacob Sanchez MD [Staff Provider] - Lavinia Humphrey DO [Primary Care Provider] - <Panda Wilkerson - Last Filed: 04/10/18 14:59> Provider - Provider Date of Admission: 04/09/18 22:03 Attending physician: Panda Wilkerson MD Primary care physician: Lavinia Humphrey DO Hospital Course - Lab Results Lab Results: Most Recent Lab Values WBC 3.7 10^3/ul (4.5-11.0) L 04/10/18 06:30 RBC 3.48 10^6/uL (3.5-6.1) L 04/10/18 06:30 Hgb 11.0 g/dL (12.0-16.0) L 04/10/18 06:30 Hct 34.6 % (36.0-48.0) L 04/10/18 06:30 MCV 99.4 fl (80.0-105.0) 04/10/18 06:30 MCH 31.6 pg (25.0-35.0) 04/10/18 06:30 MCHC 31.8 g/dl (31.0-37.0) 04/10/18 06:30 RDW 15.2 % (11.5-14.5) H 04/10/18 06:30 Plt Count 68 10^3/uL (120.0-450.0) L 04/10/18 06:30 MPV 10.2 fl (7.0-11.0) 04/10/18 06:30 Gran % 43.6 % (50.0-68.0) L 04/10/18 06:30 Lymph % (Auto) 39.5 % (22.0-35.0) H 04/10/18 06:30 Imperial % (Auto) 13.9 % (1.0-6.0) H 04/10/18 06:30 Eos % (Auto) 2.5 % (1.5-5.0) 04/10/18 06:30 Baso % (Auto) 0.5 % (0.0-3.0) 04/10/18 06:30 Gran # 1.60 (1.4-6.5) 04/10/18 06:30 Lymph # (Auto) 1.5 (1.2-3.4) 04/10/18 06:30 Imperial # (Auto) 0.5 (0.1-0.6) 04/10/18 06:30 Eos # (Auto) 0.1 (0.0-0.7) 04/10/18 06:30 Baso # (Auto) 0.02 K/mm3 (0.0-2.0) 04/10/18 06:30 PT 12.6 SECONDS (9.4-12.5) H 04/08/18 19:40 INR 1.10 (0.93-1.08) H 04/08/18 19:40 APTT 37.6 Seconds (25.1-36.5) H 04/08/18 19:40 Sodium 145 mmol/L (132-148) 04/10/18 06:30 Potassium 4.3 mmol/L (3.6-5.0) 04/10/18 06:30 Chloride 109 mmol/L (98-107) H 04/10/18 06:30 Carbon Dioxide 29 mmol/L (21-33) 04/10/18 06:30 Anion Gap 11 (10-20) 04/10/18 06:30 BUN 4 mg/dL (7-21) L 04/10/18 06:30 Creatinine 0.5 mg/dl (0.7-1.2) L 04/10/18 06:30 Est GFR ( Amer) > 60 04/10/18 06:30 Est GFR (Non-Af Amer) > 60 04/10/18 06:30 Random Glucose 93 mg/dL (70-110) 04/10/18 06:30 Hemoglobin A1c 5.4 % (4.2-6.5) 04/08/18 19:40 Calcium 9.0 mg/dL (8.4-10.5) 04/10/18 06:30 Total Bilirubin 0.7 mg/dL (0.2-1.3) 04/10/18 06:30 AST 35 U/L (14-36) 04/10/18 06:30 ALT 27 U/L (7-56) 04/10/18 06:30 Alkaline Phosphatase 84 U/L (38-126) 04/10/18 06:30 Lactate Dehydrogenase 656 U/L (333-699) 04/08/18 19:40 Total Creatine Kinase 69 U/L (35-230) 04/08/18 19:40 Troponin I < 0.01 ng/mL 04/08/18 19:40 Total Protein 5.9 g/dL (5.8-8.3) 04/10/18 06:30 Albumin 3.2 g/dL (3.0-4.8) 04/10/18 06:30 Globulin 2.7 gm/dL 04/10/18 06:30 Albumin/Globulin Ratio 1.2 (1.1-1.8) 04/10/18 06:30 Lipase 264 U/L (23-300) 04/08/18 19:40 Free T4 1.07 ng/dL (0.78-2.19) 04/08/18 19:40 TSH 3rd Generation 1.59 mIU/mL (0.46-4.68) 04/08/18 19:40 Urine Color Light yellow (YELLOW) 04/08/18 20:39 Urine Appearance Clear (CLEAR) 04/08/18 20:39 Urine pH 7.5 (4.7-8.0) 04/08/18 20:39 Ur Specific Avery 1.015 (1.005-1.035) 04/08/18 20:39 Urine Protein Negative mg/dL (<30 mg/dL) 04/08/18 20:39 Urine Glucose (UA) Negative mg/dL (NEGATIVE) 04/08/18 20:39 Urine Ketones Negative mg/dL (NEGATIVE) 04/08/18 20:39 Urine Blood Trace-intact (NEGATIVE) H 04/08/18 20:39 Urine Nitrate Negative (NEGATIVE) 04/08/18 20:39 Urine Bilirubin Negative (NEGATIVE) 04/08/18 20:39 Urine Urobilinogen 0.2 E.U./dL (<1 E.U./dL) 04/08/18 20:39 Ur Leukocyte Esterase Negative Kristel/uL (NEGATIVE) 04/08/18 20:39 Urine RBC 0 - 2 /hpf (0-2) 04/08/18 20:39 Urine WBC 0 - 2 /hpf (0-6) 04/08/18 20:39 Ur Epithelial Cells 0 - 2 /hpf (0-5) 04/08/18 20:39 Urine Bacteria Trace (NEG) 04/08/18 20:39 Attending/Attestation - Attestation I have personally seen and examined this patient.: Yes I have fully participated in the care of the patient.: Yes I have reviewed all pertinent clinical information, including history, physical exam and plan: Yes Notes (Text): I have seen and examined the patient at bedside. Agree with the above note. Patient feels better. PT cleared the patient for discharge. Follow up with Dr Humphrey and Dr Sanchez.
--- NOTE | 2018-04-10 16:05 | MRI ---
PROCEDURE: MRI BRAIN WITHOUT CONTRAST HISTORY: Near syncope. COMPARISON: Comparison made with prior CT scan of the brain CTA neck and brain dated 04/08/2018 and 04/09/2018 respectively. TECHNIQUE: Multiplanar, multisequence MR images of the brain were obtained without intravenous contrast enhancement. FINDINGS: HEMORRHAGE: No acute parenchymal, subarachnoid or extra-axial hemorrhage. No evidence of hemosiderin deposition identified on gradient echo weighted sequence. . DWI: No evidence of an acute or early subacute infarction seen on diffusion imaging. . BRAIN PARENCHYMA: Minor diffuse/confluent chronic periventricular white matter ischemic changes seen extending peripherally into the deep white matter both cerebral hemispheres. In addition, there are multiple tiny focal areas of increased T2 signal scattered about the deep and subcortical white matter as well as the posterior brainstem consistent with tiny chronic lacunar type infarcts. None of these changes exhibit restricted diffusion. No obvious parenchymal nor extra-axial masses or collections seen on this noncontrast study. Mild age-appropriate volume loss. VENTRICLES: No obstructive hydrocephalus. CRANIUM: No acute calvarial abnormalities. ORBITS: Orbits and contents grossly unremarkable. PARANASAL SINUSES/MASTOIDS: Minor mucosal thickening noted within the inferolateral margin left chamber sphenoid sinus. The VASCULAR SYSTEM: Visualized major vascular flow voids at skull base patent OTHER FINDINGS: None. IMPRESSION: No acute intracranial hemorrhage or infarct. Mild chronic white matter and brainstem ischemic changes. Mild age-appropriate volume loss.
== END 2018-04-10 14:24 | disposition home or self-care (01) ==
LOC: ED 19:07 → ERH 23:10 → 3RSO 04-09 01:01 → INTOOBSV 04-09 22:03 → OBSVTOIN 04-09 22:03
PROVIDERS: ADMIT Internal Medicine; ATTEND Hospitalist
DX: R42 Dizziness and giddiness (principal); C18.9 Malignant neoplasm of colon, unspecified; M54.9 Dorsalgia, unspecified; G89.29 Other chronic pain; Z90.49 Acquired absence of other specified parts of digestive tract; Z87.891 Personal history of nicotine dependence
CPT/HCPCS: 36415; 70450; 70496; 70498; 70551; 80053; 81001; 82550; 83036; 83615; 83690; 84439; 84443; 84484; 85025; 85027; 85610; 85730; 93005; 93306; 93880; 96374; 97116; 97162; 97530; 99285; G0378; G8978; G8979; J1650; J2405; J7030; J7042; Q9967

== ENCOUNTER 2018-05-10 08:33 | Observation (INO) | payer MEDICAID ==
[2018-05-10] MEDS ORDERED: Sodium Chloride 0.9% 1,000 ML IV STA (09:29)
--- NOTE | 2018-05-10 09:41 | ED PDOC ---
Arrival/HPI - General Chief Complaint: Medical Clearance Time Seen by Provider: 05/10/18 09:28 Historian: Patient - History of Present Illness Narrative History of Present Illness (Text): 05/10/18 09:30 pt p/w + weeks onset of abd pain; pt + colon cancer history, undergoing chemotherapy; last dose was ~ 1 week ago; pt is to be evaluated by Dr Taveras and was instructed by Dr Blood today to come to emergency department for further eval and likely admission for procedure tomorrow (likely colonoscopy); pt states she felt well otherwise, no fever/chills/sweats, no chest pain/ shortness of breath/palpitations, no n/v, no numbness/tingling, no urinary/ bowel changes, no gross bleeding; no rashes, no fall/trauma/sick contact, 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 pt's without other complaints PCP: Dr Blood GI: Nitin Time/Duration: Other Symptom Onset: Gradual Symptom Course: Unchanged Activities at Onset: Other Context: Home Past Medical History - Provider Review Nursing Documentation Reviewed: Yes - Travel History Have you recently traveled outside [place] w/in the past 3 mons?: No - Past History Past History: No Previous - Infectious Disease Hx of Infectious Diseases: None - Reproductive Menopause: Yes Currently : No - Cardiac Hx Cardiac Disorders: No - Pulmonary Hx Respiratory Disorders: No - Neurological Hx Neurological Disorder: No - HEENT Hx HEENT Disorder: No - Renal Hx Renal Disorder: No - Endocrine/Metabolic Hx Endocrine Disorders: No - Hematological/Oncological Hx Blood Disorders: Yes Hx Cancer: Yes (colon) Hx Chemotherapy: Yes - Integumentary Hx Dermatological Disorder: No - Musculoskeletal/Rheumatological Hx Musculoskeletal Disorders: No - Gastrointestinal Hx Gastrointestinal Disorders: Yes Hx Gall Bladder Disease: Yes - Genitourinary/Gynecological Hx Genitourinary Disorders: No - Psychiatric Hx Psychophysiologic Disorder: No Hx Substance Use: No - Surgical History Hx Appendectomy: Yes Hx Cholecystectomy: Yes - Anesthesia Hx Anesthesia: Yes Family/Social History - Physician Review Nursing Documentation Reviewed: Yes Family/Social History: No Known Family HX Smoking Status: Light Smoker < 10 Cigarettes Daily Hx Alcohol Use: No Hx Substance Use: No Hx Substance Use Treatment: No Allergies/Home Meds Allergies/Adverse Reactions: Allergies No Known Allergies Allergy (Verified 05/10/18 12:09) Home Medications: Home Meds Medication Instructions Recorded Confirmed Loperamide [Imodium] 2 mg PO DAILY PRN 05/10/18 05/10/18 Meclizine [Antivert] 12.5 mg PO DAILY 05/10/18 05/10/18 Ondansetron [Zofran Odt] 8 mg PO DAILY PRN 05/10/18 05/10/18 Oxycodone HCl/Acetaminophen 1 tab PO TID PRN 05/10/18 05/10/18 [Endocet 10-325 mg Tablet] Review of Systems - Review of Systems Constitutional: Normal Eyes: Normal ENT: Normal Respiratory: Normal Cardiovascular: Normal Gastrointestinal: Abdominal Pain. absent: Nausea, Vomiting Genitourinary Female: Normal Musculoskeletal: Normal Skin: Normal Neurological: Normal Endocrine: Normal Hemo/Lymphatic: Normal Psychiatric: Normal Physical Exam - Physical Exam Narrative Physical Exam (Text): 05/10/18 09:30 General: alert/awake, GCS = 15, oriented x 3, resting in bed, uncomfortable, cooperative, interactive; NAD Head: NC/AT EYE: PERRLA, EOMI, sclera anicteric, no nystagmus, no photophobia; visual field intact b/l Facial: WNL Oral: uvula/tongue are midline, no exudate/lesions, no drooling/stridor, no dysphonia; intact dentitions; mild dry oral mucosa NECK: intact ROM, no midline tenderness, no nuchal rigidity, no meningeal signs ; no step off Chest: CTA b/l, no w/r/r; no tachypenia, no accessory muscle use noted Cardiac: +S1, +S2, no m/r/r, no tachycardia Abdominal: +BS, soft/nd, mild diffuse abd tenderness, well nourished patient; no masses/rebound/guarding/rigidity; no de la o's sign, no mcburney's point tenderness Extremities: intact ROM, strength 5/5 grossly intact in all limbs, neurovasc intact b/l; + ambulatory; reflex +2/2; no pitting edema/swelling b/l; no Bouchra' s sign b/l BACK: no step off, no midline tenderness, NO crepitus, no gross deformities noted; Intact ROM SKIN: cap refill ~ 1 sec, no ulcerations, no petechiae, no rashes; no gross pallor NEURO: CNII-XII WNL, no facial asymmetries, no slurr speech, oriented x 3 NIH stroke scale ~ 0 Psych: normal insight, normal affect; follows command with ease Vital Signs Reviewed: Yes Vital Signs Temp Pulse Resp BP Pulse Ox 05/10/18 13:12 73 16 130/65 99 05/10/18 11:50 78 17 139/87 100 05/10/18 08:40 97.8 F 81 18 144/77 99 Temperature: Afebrile Blood Pressure: Hypertensive Pulse: Regular Respiratory Rate: Normal Appearance: Positive for: Well-Appearing, Non-Toxic, Comfortable. No: Ill- Appearing, Unkept Pain Distress: None Mental Status: Positive for: Alert and Oriented X 3 - Systems Exam Head: Present: Atraumatic, Normocephalic Medical Decision Making ED Course and Treatment: 05/10/18 09:30 Impression: colon cancer; for procedure in the morning i have consider all the differential diagnosis regarding pt's chief medical complaints/clinical findings, including but are not limited to: colon cancer; for procedure in the morning A/P: colon cancer - labs - iv - xray - supportive care - observe/reevaluation 05/10/18 11:35 pt is made aware of her medical results pt agrees with admission paging DR blood, no reply; will continue to page her 1230p pt is comfortable pt is not in any distress pt is awaiting hospital bed placement 05/10/18 13:[address] Blood, made aware of and in agreement with plan for admission. Requests bowel prep for a colonoscopy tomorrow and consult for Dr. Taveras. Re-evaluation Time: 12:28 Reassessment Condition: Unchanged - Lab Interpretations Lab Results: 05/10/18 09:50 05/10/18 09:29 Lab Results 05/10/18 10:17: pO2 37, VBG pH 7.31 L, VBG pCO2 58.0, VBG HCO3 29.2 H, VBG Total CO2 31.0 H, VBG O2 Sat (Calc) 75.9 H, VBG Base Excess 1.6, VBG Potassium 3.7, Glucose 83, Lactate 0.8, FiO2 21.0, Sodium 141.0, Chloride 111.0 H, Venous Blood Potassium 3.7 05/10/18 09:50: Urine Color Yellow, Urine Appearance Clear, Urine pH 6.0, Ur Specific [place] 1.025, Urine Protein Negative, Urine Glucose (UA) Negative, Urine Ketones Negative, Urine Blood Negative, Urine Nitrate Negative, Urine Bilirubin Negative, Urine Urobilinogen 0.2, Ur Leukocyte Esterase Negative 05/10/18 09:50: PT 11.5, INR 1.00, APTT 34.1 05/10/18 09:50: WBC 4.7 D, RBC 3.71, Hgb 12.0, Hct 37.0, MCV 99.7, MCH 32.3, MCHC 32.4, RDW 13.8, Plt Count 130, MPV 9.9, Gran % 52.0, Lymph % (Auto) 36.1 H , [place] % (Auto) 8.5 H, Eos % (Auto) 3.0, Baso % (Auto) 0.4, Gran # 2.43, Lymph # (Auto) 1.7, [place] # (Auto) 0.4, Eos # (Auto) 0.1, Baso # (Auto) 0.02 05/10/18 09:29: Sodium 143, Potassium 4.3, Chloride 106, Carbon Dioxide 29, Anion Gap 12, BUN 13, Creatinine 0.5 L, Est GFR ( Amer) > 60, Est GFR ( Non-Af Amer) > 60, Random Glucose 85, Calcium 9.4, Magnesium 2.0, Total Bilirubin 0.7, AST 32, ALT 24, Alkaline Phosphatase 110, Total Protein 7.2, Albumin 4.2, Globulin 3.0, Albumin/Globulin Ratio 1.4, Lipase 283 I have reviewed the lab results: Yes Interpretation: All labs normal - Medication Orders Current Medication Orders: Sodium Chloride (Sodium Chloride 0.9%) 1,000 mls @ 100 mls/hr IV .Q10H STA Stop: 05/10/18 19:28 Last Admin: 05/10/18 09:30 Dose: 100 mls/hr eMAR Start Stop Document 05/10/18 09:30 SF (Rec: 05/10/18 10:56 SF [facility] [id number]) Intravenous Solution Start Date 05/10/18 Start Time 09:30 End Date 05/10/18 Disposition/Present on Arrival - Present on Arrival Any Indicators Present on Arrival: No History of DVT/PE: No History of Uncontrolled Diabetes: No Urinary Catheter: No History of Decub. Ulcer: No History Surgical Site Infection Following: None - Disposition Have Diagnosis and Disposition been Completed?: Yes Diagnosis: Colon cancer, Abdominal pain Disposition: HOSPITALIZED Disposition Time: 12:00 Patient Plan: Admission Patient Problems: Current Active Problems Problem Status Onset Colon cancer Acute Abdominal pain Acute Condition: STABLE
[2018-05-10 10:18] LABS: BASO # 0.02 K/mm3 (0.0-2.0); BASO % 0.4 % (0.0-3.0); EOS # 0.1 (0.0-0.7); GRAN # 2.43 (1.4-6.5); LYMPH # 1.7 (1.2-3.4); LYMPH % 36.1 % (22.0-35.0); MEAN CELL VOLUME 99.7 fl (80.0-105.0); MEAN CORPUSCULAR HEMOGLOBIN 32.3 pg (25.0-35.0); MEAN CORPUSCULAR HGB CONC 32.4 g/dl (31.0-37.0); MEAN PLATELET VOLUME 9.9 fl (7.0-11.0); MONO # 0.4 (0.1-0.6); MONO % 8.5 % (1.0-6.0); RBC 3.71 10^6/uL (3.5-6.1); RED CELL DISTRIBUTION WIDTH 13.8 % (11.5-14.5); URINE APPEARANCE CLEAR (CLEAR); URINE BILIRUBIN NEGATIVE (NEGATIVE); URINE BLOOD NEGATIVE (NEGATIVE); URINE COLOR YELLOW (YELLOW); URINE GLUCOSE (UA) NEGATIVE (NEGATIVE); URINE LEUKOCYTE ESTERASE NEGATIVE Leu/uL (NEGATIVE); URINE PROTEIN NEGATIVE mg/dL (<30 mg/dL); URINE UROBILINOGEN 0.2 E.U./dL (<1 E.U./dL); WHITE BLOOD COUNT 4.7 10^3/ul (4.5-11.0)
[2018-05-10 10:27] LABS: VENOUS BLOOD GAS BASE EXCESS 1.6 mmol/L (0.0-2.0); VENOUS BLOOD GAS PO2 37 mm/Hg (30-55); VENOUS BLOOD PH 7.31 (7.32-7.43)
[2018-05-10 10:32] LABS: BLOOD UREA NITROGEN 13 mg/dL (7-21); GFR AFRICAN-AMERICAN > 60; GFR NON-AFRICAN AMERICAN > 60
[2018-05-10 10:33] LABS: ALB/GLOB RATIO 1.4 (1.1-1.8); ALBUMIN 4.2 g/dL (3.0-4.8); ALT/SGPT 24 U/L (7-56); AST/SGOT 32 U/L (14-36); CALCIUM 9.4 mg/dL (8.4-10.5); LIPASE 283 U/L (23-300)
[2018-05-10 10:35] LABS: PARTIAL THROMBOPLASTIN TIME 34.1 Seconds (25.1-36.5); PROTHROMBIN TIME 11.5 SECONDS (9.4-12.5)
[2018-05-10 17:11] VITALS: BMI 21.2
[2018-05-10] MEDS ORDERED: Pneumococcal 23-Valent Vaccine IM ONE (17:11)
[2018-05-10] MEDS ORDERED: Peg-Electrolyte Oral Soln 4L (Golytely) PO ONE (18:22)
[2018-05-10] MEDS ORDERED: Sodium Chloride 0.9% 1,000 ML IV SCH (23:30)
--- NOTE | 2018-05-10 23:37 | CP.PCM.CON ---
History of Present Illness - History of Present Illness History of Present Illness: Pt. is a 62 year old female with colon cancer. s/p resection. Completed adjuvant chemotherapy with FOLFOX. CT-PET positive at anastomosis, possible recurrence or inflammation. colonoscopy planned for tomorrow. Review of Systems - Constitutional Constitutional: As Per HPI - EENT Eyes: absent: As Per HPI, Blind Spots, Blurred Vision, Change in Vision, Decreased Night Vision, Diplopia, Discharge, Dry Eye, Exophthalmos, Floaters, Irritation, Itchy Eyes, Loss of Peripheral Vision, Pain, Photophobia, Requires Corrective Lenses, Sees Flashes, Spots in Vision, Tunnel Vision, Other Visual Disturbances, Loss of Vision, Other Ears: absent: As Per HPI, Decreased Hearing, Ear Discharge, Ear Pain, Tinnitus, Abnormal Hearing, Disequilibrium, Dizziness, Other Nose/Mouth/Throat: absent: As Per HPI, Epistaxis, Nasal Congestion, Nasal Discharge, Nasal Obstruction, Nasal Trauma, Nose Pain, Post Nasal Drip, Sinus Pain, Sinus Pressure, Bleeding Gums, Change in Voice, Dental Pain, Dry Mouth, Dysphagia, Halitosis, Hoarsness, Lip Swelling, Mouth Lesions, Mouth Pain, Odynophagia, Sore Throat, Throat Swelling, Tongue Swelling, Facial Pain, Neck Pain, Neck Mass, Other - Breasts Breasts: absent: As Per HPI, Change in Shape, Mass, Pain, Nipple Discharge, Nipple Inversion, Skin Changes, Swelling, Other - Cardiovascular Cardiovascular: absent: As Per HPI, Acrocyanosis, Chest Pain, Chest Pain at Rest , Chest Pain with Activity, Claudication, Diaphoresis, Dyspnea, Dyspnea on Exertion, Edema, Irregular Heart Rhythm, Pain Radiating to Arm/Neck/Jaw, Leg Edema, Leg Ulcers, Lightheadedness, Orthopnea, Palpitations, Paroxysmal Nocturnal Dyspnea, Pedal Edema, Radiating Pain, Rapid Heart Rate, Slow Heart Rate, Syncope, Other - Respiratory Respiratory: absent: As Per HPI, Cough, Dyspnea, Hemoptysis, Dyspnea on Exertion , Wheezing, Snoring, Stridor, Pain on Inspiration, Chest Congestion, Excessive Mucous Production, Change in Mucous Color, Pain with Coughing, Other - Gastrointestinal Gastrointestinal: As Per HPI - Genitourinary Genitourinary: absent: As Per HPI, Change in Urinary Stream, Difficulty Urinating, Dysuria, Flank Pain, Hematuria, Pyuria, Nocturia, Urinary Incontinence, Urinary Frequency, Urinary Hesitance, Urinary Urgency, Voiding Freq/Small Amts, Freq UTI, Hx Renal/Bladder Calculi, Hx /Renal Surgery, Bladder Distension, Other - Reproductive: Female Reproductive:Female: absent: As Per HPI, Amenorrhea, Amenorrhea/ Control, Currently Menstual, Cycle <21 Days, Cycle >35 Days, Cycle Variable, Menses 1-7 Days, Menses >/= 8 Days, Menses Variable, Cycle > 4 Weeks Between, No Menses for 6 Months, Heavy Menses, Light Menses, Normal Menses, Spotting Between Cycles , S/P Hysterectomy, Menopausal, Post Menopausal, Premenarche, Abnormal Vaginal Bleeding, Dysmenorrhea, Dyspareunia, Genital Lesions, Genital Pruritis, Pelvic Pain, Prolapse Symptoms, Sexual Dysfunction, Vaginal Discharge, Vaginal Dryness , Vaginal Odor, Vaginal Pruritis, Other - Musculoskeletal Musculoskeletal: absent: As Per HPI, Abnormal Gait, Arthralgias, Atrophy, Back Pain, Deformity, Joint Swelling, Limited Range of Motion, Loss of Height, Muscle Cramps, Muscle Weakness, Myalgias, Neck Pain, Numbness, Radiating Pain into Limb, Stiffness, Tingling, Other - Integumentary Integumentary: absent: As Per HPI, Acne, Alopecia, Bleeding Lesions, Change in Hair, Change in Nails, Change in Pigmentation, Changing Lesions, Dry Skin, Erythema, Furuncle, Hirsutism, Lesions, New Lesions, Non-Healing Lesions, Photosensitivity, Pruritus, Rash, Skin Pain, Skin Ulcer, Sores, Striae, Swelling , Unusual Bruising, Wounds, Jaundice, Other - Neurological Neurological: absent: As Per HPI, Abnormal Gait, Abnormal Hearing, Abnormal Movements, Abnormal Speech, Behavioral Changes, Burning Sensations, Confusion, Convulsions, Disequilibrium, Dizziness, Numbness, Focal Weakness, Frequent Falls , Headaches, Lack of Coordination, Loss of Vision, Memory Loss, Paresthesias, Radicular Pain, Restless Legs, Sensory Deficit, Syncope, Tingling, Tremor, Vertigo, Weakness, Other Visual Disturbances, Other - Psychiatric Psychiatric: absent: As Per HPI, Abnormal Sleep Pattern, Anhedonia, Anxiety, Auditory Hallucinations, Behavioral Changes, Change in Appetite, Change in Libido, Confusion, Depression, Difficulty Concentrating, Hallucinations, Homicidal Ideation, Hopelessness, Irritability, Memory Loss, Mood Swings, Panic Attacks, Paranoia, Suicidal Ideation, Visual Hallucinations, Tactile Hallucinations, Other - Endocrine Endocrine: absent: As Per HPI, Change in Body Appearance, Change in Libido, Cold Intolorance, Deepening of Voice, Excessive Sweating, Fatigue, Flushing, Heat Intolorance, Increase in Ring/Shoe/Hat Size, Palpitations, Polydipsia, Polyphagia, Polyuria, Other - Hematologic/Lymphatic Hematologic: absent: As Per HPI, Easy Bleeding, Easy Bruising, Lymphadenopathy, Other Past Patient History - Infectious Disease Hx of Infectious Diseases: None - Past Social History Smoking Status: Former Smoker - CARDIAC Hx Cardiac Disorders: No - PULMONARY Hx Respiratory Disorders: Yes (USED TO SMOKE CIGARETTES.SMOKED 6-7 CIGARETTES A DAY,QUIT) - NEUROLOGICAL Hx Neurological Disorder: Yes Hx Dizziness: Yes - HEENT Hx HEENT Problems: No - RENAL Hx Chronic Kidney Disease: No - ENDOCRINE/METABOLIC Hx Endocrine Disorders: No - HEMATOLOGICAL/ONCOLOGICAL Hx Blood Disorders: Yes Hx Cancer: Yes (STAGE 3 COLON CA ON CHEMOTHERAPHY) Hx Chemotherapy: Yes - INTEGUMENTARY Hx Dermatological Problems: No - MUSCULOSKELETAL/RHEUMATOLOGICAL Hx Musculoskeletal Disorders: No Hx Falls: No - GASTROINTESTINAL Hx Gastrointestinal Disorders: Yes (CONSTIPATION,GI BLEED) Hx Gall Bladder Disease: Yes - GENITOURINARY/GYNECOLOGICAL Hx Genitourinary Disorders: No - PSYCHIATRIC Hx Psychophysiologic Disorder: No Hx Substance Use: No - SURGICAL HISTORY Hx Surgeries: Yes Hx Appendectomy: Yes Hx Cholecystectomy: Yes - ANESTHESIA Hx Anesthesia: Yes Meds Allergies/Adverse Reactions: Allergies Allergy/AdvReac Type Severity Reaction Status Date / Time No Known Allergies Allergy Verified 05/10/18 12:09 - Medications Medications: Current Medications Sodium Chloride (Sodium Chloride 0.9%) 1,000 mls @ 80 mls/hr IV .[id number] [facility] Physical Exam - Constitutional Appears: Well - Head Exam Head Exam: ATRAUMATIC, NORMAL INSPECTION, NORMOCEPHALIC - Eye Exam Eye Exam: Normal appearance - ENT Exam ENT Exam: Mucous Membranes Moist, Normal Exam - Neck Exam Neck exam: Positive for: Normal Inspection - Respiratory Exam Respiratory Exam: Clear to Auscultation Bilateral, NORMAL BREATHING PATTERN - Cardiovascular Exam Cardiovascular Exam: REGULAR RHYTHM, +S1, +S2 - GI/Abdominal Exam GI & Abdominal Exam: Normal Bowel Sounds, Soft - Extremities Exam Extremities exam: Positive for: normal inspection - Back Exam Back exam: NORMAL INSPECTION - Skin Skin Exam: Normal Color, Warm Results - Vital Signs Recent Vital Signs: Last Vital Signs Temp 97.8 F 05/10/18 16:41 Pulse 78 05/10/18 16:41 Resp 17 05/10/18 16:41 BP 139/82 05/10/18 16:41 Pulse Ox 100 05/10/18 13:31 - Labs Result Diagrams: 05/10/18 09:50 05/10/18 09:29 Assessment & Plan - Assessment and Plan (Free Text) Assessment: 1. Colon Cancer : stage III, s/p resection, chemo. CT PET positive at anastomosis. 2. Colonoscopy planned for tomorrow. Start Golytly. 3. GI consult Dr. Taveras requested. 4. Labs am cbc, BMP. 5. IVF NS at 80cc/hr. 6. NPO - Date & Time Date: 05/10/18 Time: 09:00
[2018-05-11 07:48] LABS: HEMOGLOBIN 12.2 g/dL (12.0-16.0); MEAN CORPUSCULAR HEMOGLOBIN 32.4 pg (25.0-35.0); MEAN CORPUSCULAR HGB CONC 32.4 g/dl (31.0-37.0); MEAN PLATELET VOLUME 9.7 fl (7.0-11.0); RBC 3.76 10^6/uL (3.5-6.1); RED CELL DISTRIBUTION WIDTH 13.9 % (11.5-14.5); WHITE BLOOD COUNT 3.6 10^3/ul (4.5-11.0)
[2018-05-11 08:11] LABS: BLOOD UREA NITROGEN 9 mg/dL (7-21); CALCIUM 9.2 mg/dL (8.4-10.5); GFR AFRICAN-AMERICAN > 60; GFR NON-AFRICAN AMERICAN > 60
--- NOTE | 2018-05-11 10:22 | CP.PCM.CON ---
<Lola Magallon - Last Filed: 05/11/18 11:35> History of Present Illness - History of Present Illness History of Present Illness: GI Consult Note for Janny Ochoa PGY2 This is a 62yo female with past medical history of anemia, chronic back pain, vertigo, colon ca s/p resection and chemo who was sent to ED by Dr. Ortega. As per Dr. Ortega, patient had abnormal PET CT which showed increased activity in the patient's anastomosis. Patient states she was having intermittent abdominal pain for the past week. It is not associated with food and is located in the umbilical region and dose not radiate. Patient reports she feels well. She denies abdominal pain, chest pain, shortness of breath, nausea/vomiting/diarrhea , fever or chills. Her last colonoscopy was in 2017 in [place] at the time of her hemicolectomy. She has not had EGD or colonoscopy since then. Her last dose of chemotherapy was last week. Past medical history: vertigo, anemia (chronic with iron infusions), colon ca s/ p hemicolectomy in [place]. Completed chemotherapy with FOLFOX Past surgical history: appendectomy, cholecytectomy, hemicolectomy Home meds: Reviewed as per MAR Allergies: NKDA Social history: Former smoker (quit this yr), denies EtOH or illicit drug use. independent in all ADLs. Lives with daughter Family history: Unknown- patient adopted. PMD: Dr. Humphrey Oncologist: Dr. Ortega Review of Systems - Review of Systems All systems: reviewed and no additional remarkable complaints except Review of Systems: 12 point ROS reviewed as per HPI and is otherwise negative Past Patient History - Infectious Disease Hx of Infectious Diseases: None - Past Social History Smoking Status: Former Smoker - CARDIAC Hx Cardiac Disorders: No - PULMONARY Hx Respiratory Disorders: Yes (USED TO SMOKE CIGARETTES.SMOKED 6-7 CIGARETTES A DAY,QUIT) - NEUROLOGICAL Hx Neurological Disorder: Yes Hx Dizziness: Yes - HEENT Hx HEENT Problems: No - RENAL Hx Chronic Kidney Disease: No - ENDOCRINE/METABOLIC Hx Endocrine Disorders: No - HEMATOLOGICAL/ONCOLOGICAL Hx Blood Disorders: Yes Hx Cancer: Yes (STAGE 3 COLON CA ON CHEMOTHERAPHY) Hx Chemotherapy: Yes - INTEGUMENTARY Hx Dermatological Problems: No - MUSCULOSKELETAL/RHEUMATOLOGICAL Hx Musculoskeletal Disorders: No Hx Falls: No - GASTROINTESTINAL Hx Gastrointestinal Disorders: Yes (CONSTIPATION,GI BLEED) Hx Gall Bladder Disease: Yes - GENITOURINARY/GYNECOLOGICAL Hx Genitourinary Disorders: No - PSYCHIATRIC Hx Psychophysiologic Disorder: No Hx Substance Use: No - SURGICAL HISTORY Hx Surgeries: Yes Hx Appendectomy: Yes Hx Cholecystectomy: Yes - ANESTHESIA Hx Anesthesia: Yes Meds Allergies/Adverse Reactions: Allergies Allergy/AdvReac Type Severity Reaction Status Date / Time No Known Allergies Allergy Verified 05/10/18 12:09 - Medications Medications: Current Medications Sodium Chloride (Sodium Chloride 0.9%) 1,000 mls @ 80 mls/hr IV .[id number] ANGELES Last Admin: 05/10/18 23:52 Dose: 80 mls/hr Physical Exam - Constitutional Appears: No Acute Distress - Head Exam Head Exam: ATRAUMATIC, NORMAL INSPECTION, NORMOCEPHALIC - Eye Exam Eye Exam: PERRL Pupil Exam: NORMAL ACCOMODATION - ENT Exam ENT Exam: Mucous Membranes Moist - Respiratory Exam Respiratory Exam: Clear to Auscultation Bilateral, NORMAL BREATHING PATTERN. absent: Rales, Rhonchi, Wheezes - Cardiovascular Exam Cardiovascular Exam: REGULAR RHYTHM, +S1, +S2. absent: Gallop, Rubs, Systolic Murmur - GI/Abdominal Exam GI & Abdominal Exam: Normal Bowel Sounds, Soft. absent: Mass, Rebound, Rigid, Tenderness - Extremities Exam Extremities exam: Positive for: normal inspection. Negative for: calf tenderness, pedal edema - Neurological Exam Neurological exam: Alert, CN II-XII Intact, Oriented x3 - Psychiatric Exam Psychiatric exam: Normal Affect, Normal Mood - Skin Skin Exam: Dry, Warm Results - Vital Signs Recent Vital Signs: Last Vital Signs Temp 98 F 05/11/18 07:45 Pulse 74 05/11/18 07:45 Resp 18 05/11/18 07:45 BP 128/68 05/11/18 07:45 Pulse Ox 95 05/11/18 07:45 - Labs Result Diagrams: 05/11/18 07:40 05/11/18 07:40 Labs: Laboratory Results - last 24 hr 05/11/18 05/11/18 07:40 07:40 WBC 3.6 L D RBC 3.76 Hgb 12.2 Hct 37.6 MCV 100.0 MCH 32.4 MCHC 32.4 RDW 13.9 Plt Count 119 L MPV 9.7 Sodium 146 Potassium 4.2 Chloride 108 H Carbon Dioxide 28 Anion Gap 14 BUN 9 Creatinine 0.6 L Est GFR ( Amer) > 60 Est GFR (Non-Af Amer) > 60 Random Glucose 82 Calcium 9.2 Assessment & Plan - Assessment and Plan (Free Text) Assessment: This is a 62yo female with past medical history of anemia, chronic back pain, vertigo, colon ca s/p resection and chemo who is admitted for 1. Abdominal pain - PET CT showed increased uptake at anatomosis site 2. Hx of colon ca s/p resection and chemo (FOLFOX) 3. Hx of Anemia (Hgb is stable) 4. Hx of vertigo Plan: Patient will have colonoscopy this afternoon. Will restart diet depending on colonoscopy findings. Abdominal pain has resolved. Continue IV fluids. Case seen, discussed and reviewed with Dr. Taveras. Janny Magallon PGY2 - Date & Time Date: 05/11/18 Time: 11:47 <Vannesa Taveras V - Last Filed: 05/11/18 23:17> Results - Vital Signs Recent Vital Signs: Last Vital Signs Temp 97.4 F L 05/11/18 16:19 Pulse 65 05/11/18 16:19 Resp 12 05/11/18 16:19 BP 148/75 05/11/18 16:19 Pulse Ox 99 05/11/18 16:19 - Labs Result Diagrams: 05/11/18 07:40 05/11/18 07:40 Labs: Laboratory Results - last 24 hr 05/11/18 05/11/18 07:40 07:40 WBC 3.6 L D RBC 3.76 Hgb 12.2 Hct 37.6 MCV 100.0 MCH 32.4 MCHC 32.4 RDW 13.9 Plt Count 119 L MPV 9.7 Sodium 146 Potassium 4.2 Chloride 108 H Carbon Dioxide 28 Anion Gap 14 BUN 9 Creatinine 0.6 L Est GFR ( Amer) > 60 Est GFR (Non-Af Amer) > 60 Random Glucose 82 Calcium 9.2 Attending/Attestation - Attestation I have personally seen and examined this patient.: Yes I have fully participated in the care of the patient.: Yes I have reviewed all pertinent clinical information: Yes Notes (Text): This is an addendum to GI consult report dictated by the Ware Server.The patient was seen and examined earlier. Medical records, lab studies, imagings were reviewed. Last 24 hours events reviewed. Agreed with the above treatment plan as outlined in [employer] Server 's notes the with the addition of the following abnormal PET-CAT scan showin uptake at the anastomotic area Abdomen soft no tenderness Scheduled for colonoscopy 05/11/18 23:14
[2018-05-11] MEDS ORDERED: Propofol 10 mg/ml Inj (20 ML) ONE ×2 (15:11→15:27)
[2018-05-11] MEDS ORDERED: Sodium Chloride 0.9% 1,000 ML IV SCH (16:00)
[2018-05-11 16:02] VITALS: RESP 12; TEMP 97.4; O2SAT 99
[2018-05-11 16:22] VITALS: BP 148/75; PULSE 65
== END 2018-05-11 17:09 | disposition home or self-care (01) ==
LOC: ED 08:33 → ERH 11:18 → INTOOBSV 11:18 → ERH 11:37 → 3RNO 13:34
PROVIDERS: ADMIT Internal Medicine Medical Oncology; ATTEND Internal Medicine Medical Oncology
DX: C18.9 Malignant neoplasm of colon, unspecified (principal); K57.30 Diverticulosis of large intestine without perforation or abscess without bleeding; D12.8 Benign neoplasm of rectum; D12.9 Benign neoplasm of anus and anal canal; K64.8 Other hemorrhoids; R10.9 Unspecified abdominal pain; R42 Dizziness and giddiness; D64.9 Anemia, unspecified; Z87.891 Personal history of nicotine dependence